=== PATIENT | male | born 1970 | race Caucasian/White ===

== ENCOUNTER 2021-03-27 08:01 | Outpatient (REF) | payer BC, SELFPAY ==
[2021-03-27 11:14] LABS: Hematocrit 42.9 % (42-52); Hemoglobin 14.2 g/dl (14.0-18.0); Mean Corpuscular HGB Conc 33.1 g/dl (31.0-36.0); Mean Corpuscular Hemoglobin 28.7 pg (27.0-33.0); Mean Corpuscular Volume 86.7 fL (80-98); Mean Platelet Volume 9.5 fL (9.4-12.4); Platelet Count 301 X10*3/uL (160-400); Red Blood Count 4.95 X10*6/uL (4.60-5.80); Red Cell Distribution Width 14.5 % (11.0-16.0); White Blood Count 8.5 X10*3/uL (4.8-10.8)
[2021-03-27 11:54] LABS: Alanine Aminotransferase 17 U/L (0-40); Albumin Level 4.1 g/dL (3.5-5.0); Alkaline Phosphatase 60 U/L (39-117); Anion Gap 14 (12-20); Aspartate Amino Transferase 18 U/L (5-37); Bilirubin Total 0.6 mg/dL (0.0-1.0); Blood Urea Nitrogen 17 mg/dL (9-16); Calcium 9.1 mg/dL (8.4-10.2); Carbon Dioxide 26 mmol/L (22-29); Chloride 105 mmol/L (96-108); Estimated Glomerular Filt Rate > 60; Glucose Fasting 100 mg/dL (60-99); Potassium 4.6 mmol/L (3.3-5.1); Sodium 140 mmol/L (135-145); Total Protein 6.8 g/dL (6.5-8.0)
[2021-03-27 12:00] LABS: Prostate Specific Antigen 1.53 ng/mL (<0.05-4.0)
== END 2021-03-27 08:02 | disposition home or self-care (01) ==
LOC: HO.MANLDS 08:01
PROVIDERS: PCP Internal Medicine; Visit Provider Internal Medicine
DX: I10 Essential (primary) hypertension (principal)
CPT/HCPCS: 36415; 80053; 84153; 85027

== ENCOUNTER 2022-06-03 07:29 | Outpatient (REF) | payer BC, SELFPAY ==
[2022-06-03 11:06] LABS: MANUAL DIFF FLAG NO
[2022-06-03 11:10] LABS: Basophils Percent Auto 0.3 % (0-2); Eosinophils Absolute Auto 0.2 X10*3/uL (0.0-0.4); Eosinophils Percent Auto 2.4 % (0-4); Hematocrit 45.2 % (42.0-52.0); Imm Gran Abs Auto 0.03 X10*3/uL (0.00-0.03); Imm Gran Pct Auto 0.4 % (0.0-0.4); Lymphocytes Absolute Auto 1.4 X10*3/uL (1.2-4.9); Lymphocytes Percent Auto 17.8 % (20-40); Mean Corpuscular HGB Conc 33.2 g/dl (31.0-36.0); Mean Corpuscular Hemoglobin 29.1 pg (27.0-33.0); Mean Corpuscular Volume 87.6 fL (80.0-98.0); Mean Platelet Volume 9.5 fL (9.4-12.4); Monocytes Absolute Auto 0.8 X10*3/uL (0.1-1.2); Monocytes Percent Auto 9.9 % (2-11); Neutrophils Absolute Auto 5.3 x10*3/uL (2.0-8.3); Neutrophils Percent Auto 69.2 % (45-73); Platelet Count 254 X10*3/uL (160-400); Red Blood Count 5.16 X10*6/uL (4.60-5.80); Red Cell Distribution Width 14.2 % (11.0-16.0); White Blood Count 7.6 X10*3/uL (4.8-10.8)
[2022-06-03 11:39] LABS: Alanine Aminotransferase 18 U/L (0-40); Albumin Level 4.1 g/dL (3.5-5.0); Alkaline Phosphatase 56 U/L (39-117); Anion Gap 13 (12-20); Aspartate Amino Transferase 19 U/L (5-37); Bilirubin Total 0.4 mg/dL (0.0-1.0); Blood Urea Nitrogen 23 mg/dL (9-16); Calcium 8.9 mg/dL (8.4-10.2); Carbon Dioxide 23 mmol/L (22-29); Chloride 105 mmol/L (96-108); Cholesterol 160 mg/dL; Estimated Glomerular Filt Rate > 60; Glucose Random 93 mg/dL (60-115); HDL Cholesterol 39 mg/dL; LDL Cholesterol Calculated 99 mg/dl; Sodium 137 mmol/L (135-145); Total Protein 6.6 g/dL (6.5-8.0); Triglycerides 112 mg/dL
[2022-06-03 12:02] LABS: Prostate Specific Antigen 1.02 ng/mL (<0.05-4.0); Vitamin D 25-OH Total 31.7 ng/mL (>30)
== END 2022-06-03 07:30 | disposition home or self-care (01) ==
LOC: HO.MANLDS 07:29
PROVIDERS: Visit Provider Internal Medicine
DX: Z00.00 Encounter for general adult medical examination without abnormal findings (principal); Z12.5 Encounter for screening for malignant neoplasm of prostate
CPT/HCPCS: 36415; 80053; 80061; 82306; 84153; 85025

== ENCOUNTER 2023-07-31 11:25 | Outpatient (REF) | payer BC, SELFPAY ==
[2023-07-31 13:02] LABS: MANUAL DIFF FLAG NO
[2023-07-31 13:37] LABS: Basophils Percent Auto 0.3 % (0-2); Eosinophils Absolute Auto 0.1 X10*3/uL (0.0-0.4); Eosinophils Percent Auto 1.9 % (0-4); Hematocrit 44.3 % (42.0-52.0); Hemoglobin 14.7 g/dl (14.0-18.0); Imm Gran Abs Auto 0.03 X10*3/uL (0.00-0.03); Imm Gran Pct Auto 0.4 % (0.0-0.4); Lymphocytes Absolute Auto 1.5 X10*3/uL (1.2-4.9); Lymphocytes Percent Auto 19.7 % (20-40); Mean Corpuscular HGB Conc 33.2 g/dl (31.0-36.0); Mean Corpuscular Hemoglobin 29.7 pg (27.0-33.0); Mean Corpuscular Volume 89.5 fL (80.0-98.0); Mean Platelet Volume 9.4 fL (9.4-12.4); Monocytes Absolute Auto 0.7 X10*3/uL (0.1-1.2); Monocytes Percent Auto 8.9 % (2-11); Neutrophils Absolute Auto 5.2 x10*3/uL (2.0-8.3); Neutrophils Percent Auto 68.8 % (45-73); Platelet Count 269 X10*3/uL (160-400); Red Blood Count 4.95 X10*6/uL (4.60-5.80); Red Cell Distribution Width 14.1 % (11.0-16.0); White Blood Count 7.5 X10*3/uL (4.8-10.8)
[2023-07-31 14:03] LABS: Alanine Aminotransferase 25 U/L (0-40); Albumin Level 4.1 g/dL (3.5-5.0); Alkaline Phosphatase 52 U/L (39-117); Anion Gap 12 (12-20); Aspartate Amino Transferase 19 U/L (5-37); Bilirubin Total 0.6 mg/dL (0.0-1.0); Blood Urea Nitrogen 13 mg/dL (9-16); Calcium 9.7 mg/dL (8.4-10.2); Carbon Dioxide 27 mmol/L (22-29); Chloride 104 mmol/L (96-108); Cholesterol 177 mg/dL (<200); Estimated Glomerular Filt Rate > 60; Glucose Random 96 mg/dL (60-115); HDL Cholesterol 52 mg/dL (>40); LDL Cholesterol Calculated 113 mg/dL (<100); Potassium 4.2 mmol/L (3.3-5.1); Sodium 139 mmol/L (135-145); Total Protein 7.3 g/dL (6.5-8.0); Triglycerides 63 mg/dL (<150)
== END 2023-07-31 11:26 | disposition home or self-care (01) ==
LOC: HO.MANLDS 11:25
PROVIDERS: Visit Provider Internal Medicine
DX: E78.00 Pure hypercholesterolemia, unspecified (principal); Z12.5 Encounter for screening for malignant neoplasm of prostate
CPT/HCPCS: 36415; 80053; 80061; 84153; 85025

== ENCOUNTER 2024-06-03 07:24 | Outpatient (REF) | payer BC, SELFPAY ==
[2024-06-03 13:01] LABS: MANUAL DIFF FLAG NO
[2024-06-03 13:14] LABS: Basophils Percent Auto 0.5 % (0-2); Eosinophils Absolute Auto 0.1 X10*3/uL (0.0-0.4); Hematocrit 45.4 % (42.0-52.0); Hemoglobin 15.3 g/dl (14.0-18.0); Imm Gran Abs Auto 0.04 X10*3/uL (0.00-0.03); Imm Gran Pct Auto 0.6 % (0.0-0.4); Lymphocytes Absolute Auto 1.1 X10*3/uL (1.2-4.9); Lymphocytes Percent Auto 16.9 % (20-40); Mean Corpuscular HGB Conc 33.7 g/dl (31.0-36.0); Mean Platelet Volume 9.5 fL (9.4-12.4); Monocytes Absolute Auto 0.6 X10*3/uL (0.1-1.2); Monocytes Percent Auto 9.5 % (2-11); Neutrophils Absolute Auto 4.7 x10*3/uL (2.0-8.3); Neutrophils Percent Auto 70.5 % (45-73); Platelet Count 271 X10*3/uL (160-400); Red Cell Distribution Width 14.6 % (11.0-16.0); White Blood Count 6.6 X10*3/uL (4.8-10.8)
[2024-06-03 14:11] LABS: Alanine Aminotransferase 29 U/L (0-40); Albumin Level 4.2 g/dL (3.5-5.0); Alkaline Phosphatase 59 U/L (39-117); Anion Gap 15 (12-20); Aspartate Amino Transferase 22 U/L (5-37); Bilirubin Total 0.3 mg/dL (0.0-1.0); Blood Urea Nitrogen 16 mg/dL (9-16); Calcium 9.5 mg/dL (8.4-10.2); Carbon Dioxide 26 mmol/L (22-29); Chloride 107 mmol/L (96-108); Cholesterol 176 mg/dL (<200); Estimated Glomerular Filt Rate > 60; Glucose Random 99 mg/dL (60-115); HDL Cholesterol 49 mg/dL (>40); LDL Cholesterol Calculated 111 mg/dL (<100); Potassium 4.9 mmol/L (3.3-5.1); Sodium 143 mmol/L (135-145); Total Protein 7.2 g/dL (6.5-8.0); Triglycerides 83 mg/dL (<150)
[2024-06-03 14:12] LABS: Prostate Specific Antigen 1.36 ng/mL (<0.05-4.0)
[2024-06-03 14:17] LABS: Vitamin D 25-OH Total 36.3 ng/mL (>30)
== END 2024-06-03 07:25 | disposition home or self-care (01) ==
LOC: HO.MANLDS 07:24
PROVIDERS: Visit Provider Internal Medicine
DX: Z12.5 Encounter for screening for malignant neoplasm of prostate (principal); I10 Essential (primary) hypertension
CPT/HCPCS: 36415; 80053; 80061; 82306; 84153; 85025

== ENCOUNTER 2025-06-13 10:26 | Outpatient (REF) | payer BC, SELFPAY ==
--- OUTSIDE RECORDS SUMMARY | 2025-06-13 11:35 | XMS_ITS | Data Portability ---
Author Organization [facility], Telehealth Patient Home Address [address] [place] [address] Assessment Encounter Date Assessment Date Assessment LastModified by Organization Details LastModified Time 08/05/2023 08/05/2023 [id number] [place] [id number] (RESIDENT CARE AIDE) MDM MODERATE MUST MEET 2 OUT OF 3 ELEMENTS: PROBLEMS, DATA OR RISK ELEMENT 1: PROBLEMS ADDRESSED 1 OR MORE CHRONIC ILLNESS WITH EXACERBATION OR 2 OR MORE STABLE CHRONIC ILLNESSES OR 1 UNDIAGNOSED NEW PROBLEM OR 1 ACUTE ILLNESS W/SYMPTOMS OR 1 ACUTE COMPLICATED INJURY ELEMENT 2: DATA MUST MEET 1 OF 3 CATEGORIES CATEGORY 1: REVIEW OF PRIOR EXTERNAL NOTES, REVIEW OF RESULTS, ORDERING OF EACH TEST, ASSESSMENT REQUIRING INDEPENDENT HISTORIAN OR CATEGORY 2: INDEPENDENT INTERPRETATION OF TESTS BY ANOTHER PHYSICIAN OR SPECIALIST OR CATEGORY 3: DISCUSSION OF MGT OR TEST INTERPRETATION W/EXTERNAL PHYSICIAN OR SPECIALIST ELEMENT 3: RISK RISK OF COMPLICATIONS AND/OR MORBIDITY OR MORTALITY OF PATIENT MANAGEMENT PROVIDER MUST THOROUGHLY DOCUMENT EACH ELEMENT THAT IS COVERED Not available 08/05/2023 09:51:55 02/26/2024 02/26/2024 [id number] [place] [id number] (RESIDENT CARE AIDE) : MDM LOW MUST MEET 2 OF 3 ELEMENTS: PROBLEMS, DATA OR RISK ELEMENT 1: PROBLEMS ADDRESSED (LOW): 2 OR MORE SELF-LIMITED OR MINOR PROBLEMS OR 1 STABLE CHRONIC ILLNESS OR 1 ACUTE UNCOMPLICATED ILLNESS OR INJURY ELEMENT 2: DATA TO BE REVISED AND ANALYZED (LOW) MUST MEET 1 OF 2 CATEGORIES: CATEGORY 1. REVIEW OF PRIOR EXTERNAL NOTES/RESULTS, ORDERING OF TEST(S) CATEGORY 2. ASSESSMENT REQUIRING INDEPENDENT HISTORIAN(S) INCLUDE WHO THE HISTORIAN IS AND RELATION TO PT AND WHY PT IS UNABLE TO GIVE COMPLETE HISTORY ELEMENT 3: RISK (LOW) RISK OF COMPLICATIONS AND/OR MORBIDITY OR MORTALITY OF PATIENT MANAGEMENT PROVIDER MUST THOROUGHLY DOCUMENT ALL OF THE ELEMENTS COVERED Not available 02/26/2024 09:16:03 Plan of Treatment Reminders Order Date Submit Date Provider Last Modified By Organization Details Last Modified Time Details Appointments ANNUAL EXAM 2024 10:00A M DR [place] Not available Not available Not available ANNUAL EXAM 2025 10:00A M DR [place] Not available Not available Not available Lab lipid panel, blood 2024 025 [facility], [address] [place] [address], [id number], 06/13/2025 10:22:36 CMP, serum or plasma 2024 025 [facility], [address] [place] [address], [id number], 06/13/2025 10:22:36 CBC w/ auto diff 2024 025 [facility], [address] [place] [address], [id number], 06/13/2025 10:22:36 PSA, serum or plasma 2024 025 [facility], [address] [place] [address], [id number], 06/13/2025 10:22:36 CMP, serum or plasma 2023 024 [facility], [address] [place] [address], [id number], 06/06/2024 11:17:55 CBC 2023 024 [facility], [address] [place] [address], [id number], 02/26/2024 09:19:13 PSA, serum or plasma 2023 024 [facility], [address] [place] [address], [id number], 06/06/2024 11:17:55 lipid panel, blood 2023 024 [facility], [address] [place] [address], [id number], 06/06/2024 11:17:55 vitamin D, 25-hydrox y, total, serum 2023 024 [facility], [address] [place] [address], [id number], 06/06/2024 11:17:55 lipid panel, blood 2022 023 [facility], [address] [place] [address], [id number], 08/03/2023 11:09:11 CMP, serum or plasma 2022 023 [facility], [address] [place] [address], [id number], 08/03/2023 11:09:11 PSA, serum or plasma 2022 023 [facility], [address] [place] [address], [id number], 08/03/2023 11:09:11 CBC w/ auto diff 2022 023 [facility], [address] [place] [address], [id number], 08/03/2023 11:09:12 Referral dermatolo gist referral 2022 023 arjun Del Rosario MD, [address], [place], [id number], 07/03/2023 08:51:49 Procedures None recorded. Surgeries None recorded. Imaging CT, coronary calcium score 2024 025 [email or web address], [facility] [place], [address], 06/13/2025 10:48:44 Medication Orders losartan 100 mg tablet 2023 024 [facility], [facility] [place], [id number], 06/07/2024 11:25:41 rosuvasta tin 20 mg tablet [address] [facility], [facility] [place], [address], 06/07/2024 16:50:59 omeprazol e 20 mg capsule,d elayed release 2022 023 [facility], [facility] [place], [address], 06/02/2023 12:23:44 rosuvasta tin 10 mg tablet [address] [facility] [place], [id number], 06/07/2024 16:49:44 Patient TargetsNo targets recorded. Patient Instructions Encounter Date Encounter Id Patient Instructions Last Modified By Organization Details Last Modified Time 06/02/2023 [id number] actinic keratosi s: care instructions Not available 06/02/2023 12:25:49 gastroesophageal reflux disease (GERD): care instructions Not available 06/02/2023 12:23:40 Reason for Referral Music Therapist Referral for A ctinic keratosis Referring Physician: Marquis Birmingham, Internal Medicine, Encounter Date: 06/02/2023 Results Created Date Observation Date Name Description Value Unit Range Abnormal Flag Note LastModifiedBy Organization Detail LastModifiedTime Result Notes None recorded. Problems Name Problem SNOMED Code Status Onset Date Resolution Date Notes Provider Name and Address Organization Details Recorded Time Overweight 025609002 Active 2020 Not Available [facility] 14:17:48 Herpetic elvis 47455189 Active 2020 Not Available [facility] 14:17:48 Sciatica 59990972 Active 2020 Not Available [facility] 14:17:48 Hypertensi ve disorder 56796344 Active 2020 Not Available [facility] 14:17:48 Primary erectile dysfunctio n 170720792 Active 2021 Marquis Birmingham DO [address] [place] [address], [address], [facility] 2 16:38:27 Actinic keratosis 965170401 Active 2021 Marquis Birmingham DO [address] [place] [address], [address], [facility] 2 16:44:47 Hyperchole sterolemia 39714996 Active 2021 Marquis Birmingham DO [address] [place] [address], [id number], [facility] 2 12:38:29 Epididymit is 38872235 Active 2021 Marquis Birmingham DO [address] [place] [address], [address], [facility] 2 12:40:00 Gastroesop hageal reflux disease 181534944 Active 2022 Marquis Birmingham DO [address] [place] [address], [address], [facility] 3 12:17:38 History of calculus of kidney 375603708 Active 2022 Marquis Birmingham DO [address] [place] [address], [address], [facility] 3 09:43:23 Calcific coronary arterioscl erosis 92217530 Active 2024 Marquis Birmingham DO [address] [place] [address], [address], [facility] 5 10:11:36 Problem Notes None recorded. Procedures Surgical History Date Name Laterality Status Provider Name and Address Organization Details Recorded Time Vasectomy completed Ericka Garcia MA [facility] 02/18/2021 14:22:43 Appendectomy completed Ericka Garcia MA [facility] 02/18/2021 14:22:50 adenoid excision completed Ericka Garcia MA [facility] 02/18/2021 14:22:59 Tonsillectomy completed Ericka [facility] 02/18/2021 14:23:05 Imaging Results None recorded. Procedure Notes None recorded. Medical Equipment None Reported. Allergies No known drug allergies Medications Name Sig Start Date Stop Date Status Note LastModified by Organization Details LastModified Time losartan 50 mg tablet TAKE 1 TABLET DAILY 07/30 completed Not Available Not Available Not Available sildenafil 50 mg tablet 1 po QD 12/13 completed Not Available Not Available Not Available simvastatin 10 mg tablet Take 1 tablet every day by oral route. 02/20 completed Not Available Not Available Not Available sildenafil 100 mg tablet TAKE 1 TABLET NEEDED; 18TABLETS ALLOWED BY INSURANCE EVERY 2 MONTHS active Not Available Not Available No t Available ketorolac 10 mg tablet TAKE 1 TABLET BY MOUTH THREE TIMES DAILY FOR 3 DAYS NEEDED PAIN. NOT TO EXCEED 40 MG DAILY AND 5 DAYS DURATION FOR ALL DOSE FORMS active Not Available Not Available No t Available tamsulosin 0.4 mg capsule TAKE 1 CAPSULE BY MOUTH EVERY NIGHT AT BEDTIME 06/07 completed Not Available Not Available Not Available naproxen sodium 220 mg tablet Take 1 tablet twice a day by oral route. 02/20 completed Not Available Not Available Not Available losartan 25 mg tablet Take 1 tablet every day by oral route. 02/20 completed Not Available Not Available Not Available omeprazole 20 mg capsule,del ayed release Take 1 capsule every day by oral route for 90 days. 2022 active Not Available Not Available Not Avai lable ondansetron 4 mg disintegrat ing tablet DISSOLVE 1 TABLET ON THE TONGUE EVERY 8 HOURS FOR 3 DAYS NEEDED FOR NAUSEA OR VOMITING 02/25 completed Not Available Not Available Not Available losartan 100 mg tablet TAKE 1 TABLET DAILY active Not Available Not Available No t Available rosuvastati n 5 mg tablet TAKE 1 TABLET BY MOUTH EVERY DAY 02/24 completed Not Available Not Available Not Available rosuvastati n 10 mg tablet TAKE 1 TABLET DAILY 06/07 completed Not Available Not Available Not Available rosuvastati n 20 mg tablet TAKE 1 TABLET DAILY active Not Available Not Available No t Available Zofran 02/25 completed Not Available Not Available Not Available Plenvu 140 gram-9 gram-5.2 gram powder packs COMPLETE ON DAY BEFORE PROCEDURE PER MINUTES IF SYMPTOMS OF OPIOID EMERGENCY PERSIST 05/30 completed Not Available Not Available Not Available Vitals Date Recorded Body height Body mass index (BMI) Body weight Heart rate Oxygen saturation Oxygen saturation in Arterial blood by Pulse oximetry Systolic And Diastolic Provider Name and Address Organization Details Last Updated DateTime 4 168.91 cm 35.8 kg/m2 328834. 28 g 73 /min 97 % 97 % 112/70 mm[Hg] Malini Moran [facility] 4 09:06:19 Date Recorded Body height Body mass index (BMI) Body weight Heart rate Oxygen saturation Oxygen saturation in Arterial blood by Pulse oximetry Systolic And Diastolic Provider Name and Address Organization Details Last Updated DateTime 3 168.91 cm 34.8 kg/m2 03574.7 3 g 75 /min 97 % 97 % 160/80 mm[Hg] Marquis Birmingham DO [address] [place] [address], [phone], [facility] 3 12:03:10 Date Recorded Body mass index (BMI) Body weight Provider Name and Address Organization Details Last Updated DateTime 06/07/2024 35 kg/m2 95534.32 g Marquis Birmingham DO [address] [place] [address], [address], [facility] 06/07/2024 11:10:21 Date Recorded Body height Heart rate Oxygen saturation Oxygen saturation in Arterial blood by Pulse oximetry Systolic And Diastolic Provider Name and Address Organization Details Last Updated DateTime 4 168.91 cm 73 /min 97 % 97 % 120/78 mm[Hg] Malini Moran [facility] 4 11:06:21 Date Recorded Body weight Oxygen saturation Oxygen saturation in Arterial blood by Pulse oximetry Heart rate Systolic And Diastolic Provider Name and Address Organization Details Last Updated DateTime 5 416662. 55 g 98 % 98 % 56 /min 126/70 mm[Hg] Shadia Hannah [facility] 5 09:57:47 Date Recorded Body height Body mass index (BMI) Body weight Heart rate Oxygen saturation Oxygen saturation in Arterial blood by Pulse oximetry Systolic And Diastolic Provider Name and Address Organization Details Last Updated DateTime 3 168.91 cm 34.2 kg/m2 04068.3 6 g 62 /min 97 % 97 % 142/78 mm[Hg] Dionne Najera [facility] 3 09:35:35 Social History Question Answer Notes LastModified by Organizat ion Details LastModified Time Tobacco Smoking Status [facility] 02/18/2021 14:23:12 What Was The Date Of Your Most Recent Tobacco Screening? 06/13/2025 [email or web address] Information not available 06/13/2025 Sex: Unknown Functional Status Question Answer Note LastModified by Organization D etails LastModified Time Do you or have you ever used any other forms of tobacco or nicotine? No [email or web address] Information not available 08/05/2023 Mental Status None recorded. Family History Relationship Description Onset Age of this Age Resolved Age Notes LastModified by Organization Details LastModified Time Maternal Grandmother Diabetes mellitus [email or web address] Not available 2020 13:59:47 Maternal Grandfather Diabetes mellitus [email or web address] Not available 2020 13:59:47 Maternal Grandfather Heart disease [email or web address] Not available 2020 14:00:04 Mother Diabetes mellitus [email or web address] Not available 2020 13:59:47 Mother Heart disease [email or web address] Not available 2020 14:00:04 Mother Depressive disorder [email or web address] Not available 2020 14:00:23 Father Hypertensive disorder [email or web address] Not available 2020 14:00:13 Father Malignant neoplastic disease [email or web address] Not available 09:51:18 Medical History No medical history recorded. Immunizations Vaccine Type Date Status Note Provider Nam e and Address Organization Details Recorded Time Influenza, split virus, quadrivalent, preservative 11/02/202 1 completed Dionne Gencarelle null, [facility] 08/05/2023 09:27:53 COVID-19, mRNA, LNP-S, PF, 100 mcg/0.5mL dose or 50 mcg/0.25mL dose 1 completed Dionne Gencarelle edgar [facility] 08/05/2023 09:27:53 Tdap 0 completed Ericka Garcia null, [facility] 02/18/2021 14:21:55 Influenza, split virus, quadrivalent, preservative 0 completed Dionne Gencarelle edgar, [facility] 08/05/2023 09:27:53 COVID-19, mRNA, LNP-S, PF, 100 mcg/0.5mL dose or 50 mcg/0.25mL dose 1 completed Dionne Gencarelle edgar [facility] 08/05/2023 09:27:53 COVID-19, mRNA, LNP-S, PF, 100 mcg/0.5mL dose or 50 mcg/0.25mL dose 1 completed Dionne Gencarelle [facility] 08/05/2023 09:27:53 Past Encounters Encounter ID Performer Location Encounter Start Date Encounter Closed Date Diagnosis/Indication Diagnosis SNOMED-CT Code Diagnosis ICD10 Code Diagnosis Note [id number] Marquis Birmingham [facility] [address] [place] [address] 02/20/2021 11:46:19 02/20/2021 14:31:44 Adult health examination 897542662 Z00.00 Hypertensive disorder 38 554097 I10 will rech after increase losasrt to 50 [id number] Marquis Birmingham [facility] [address] [place] [address] 04/01/2021 15:27:15 04/01/2021 16:34:25 Active or passive immunization 908702728 Z23 vtd Adult [facility] th examination 882576611 Z00.[address] finding of 44% calcium build up in cor art Hypertensive disorder 38 308739 I10 will rech after increase losasrt to 50 Hypercholesterolemia 136 55792 E78.00 Screening colonoscopy 44 4268835 Z12.11 [id number] Marquis Birmingham [facility] [address] [facility] [place] [address] 05/30/2022 15:42:21 05/30/2022 16:44:41 Active or passive immunization 114564375 Z23 patient advised he is due for tdap Adult heal th examination 468000410 Z00.[address] finding of 44% calcium build up in cor art Hypertensive disorder 38 189781 I10 will rech after increase losasrt to 50 Primary er ectile dysfunction 078631619 N52.9 [id number] Marquis Birmingham [facility] [address] [facility] [address] 07/07/2022 12:13:20 07/07/2022 14:05:11 Hypertensive disorder 79965268 I10 will rech after increase losasrt to 50 Hypercholesterolemia 136 38525 E78.00 reviewed numbers Epididymitis 73679376 N4 5.1 usually dissipates with advil is getting better but will call if worse Primary er ectile dysfunction 885352491 N52.9 [id number] Marquis Birmingham [facility] [address] [facility] [address] 06/02/2023 11:51:36 06/02/2023 13:37:34 Active or passive immunization 797502323 Z23 patient advised he is due for tdap Adult heal th examination 024874142 Z00.[address] finding of 44% calcium build up in cor art Hypercholesterolemia 136 36314 E78.00 reviewed numbers Gastroesop hageal reflux disease 431993796 K21.9 Hypertensive disorder 38 912773 I10 will cut back on Na+ use and we will rechk in 45 days Actinic keratosis 007 L57.0 [id number] Marquis Birmingham [facility] [address] [facility] [address] 08/05/2023 09:27:06 08/05/2023 10:11:59 Hypercholesterolemia 17807467 E78.00 reviewed numbers doing good LDL 113 HDL 52 History of calculus of kidney 186866330 Z87.442 has passed at least 2 of 4 stoneswill be seeing urologist next weekUS is next week as wellhe will cont the flomax Hypertensive disorder 38 040679 I10 doing much better even after the kidney stone [id number] Marquis Birmingham [facility] [address] [facility] [address] 02/26/2024 08:57:48 02/26/2024 09:43:15 Hypertensive disorder 68667253 I10 doing much better History of calculus of kidney 387667758 Z87.442 has passed at least 2 of 4 stoneswill be seeing urologist next weekUS is next week as wellhe will cont the flomax Hypercholesterolemia 136 34273 E78.00 reviewed numbers doing good LDL 113 HDL 52will rechk in the fall [id number] Marquis Birmingham [facility] [address] [facility] [address] 06/07/2024 10:55:42 06/07/2024 15:32:25 Depression screening 950414713 Z13.31 neg Hypercholesterolemia 136 75015 E78.00 reviewed numbers doing good LDL 111 HDL 53will increase dose to 20mg Hypertensive disorder 38 153718 I10 doing much better [id number] Marquis Birmingham [facility] [address] [facility] [address] 06/13/2025 09:51:03 06/13/2025 10:48:44 Active or passive immunization 495356195 Z23 patient advised he is due for tdap Depression screening 171 705361 Z13.31 neg Hypercholesterolemia 136 74676 E78.00 reviewed numbers doing good LDL 111 HDL 53will increase dose to 20mg Hypertensive disorder 38 492270 I10 doing much better Calcific c oronary arteriosclerosis 46268940 I25.10 Well adult 828704518 Z00 .[address] finding of 44% calcium build up in cor art Health Concerns Section Related Observation LastModified by Organization Detai ls LastModified Time None Recorded Concern Status LastModified by Organization Details LastModified Time None Recorded Advance Directives Directive None Recorded Payers Insurance Date Sequence Insurance Name Policy Number Policy Kelly Covered Member ID Kelly Member ID Guarantor Name 06/13/2025 1 [facility] [id number] Jevon White [id number] Jevon White Notes Date Note Type Note Provider Name and Address Organization Details Recorded Time 06/02/20 23 text/htm l Annual WellnessReported bypatient.Diet and Nutrition:healthy diet Fracture Risk:no history of fractures; no recent explained fracture; no sudden unexplained fractures; no previous musculoskeletal injuries Physical Activity:exercises on a regular basis; recent increase in physical activity; good physical condition Additional Lifestyle Factors:no tobacco use; no alcohol intake; stopped drinking alcohol Depression Risk:never feels sad, empty, or tearful; no loss of interest in activities; no significant changes in weight; no sleep disturbances or insomnia; no agitation; no loss of energy; no feelings of worthlessness or guilt; no thoughts of suicide; no history of depression; no history of mood disorders Hearing:no loss of hearing Vision:no vision problems Marquis Birmingham DO [address] [place], [address], [facility] 06/02/2023 12:30:00 08/05/20 23 text/htm l here for rechkhas recently passed 4 kidney stoneson eval was noted to have hydronephrosiswas eval with CT scan had 4 stoneshe has passed at least 2 stonesfeels fine right nowhas a US ordered next week Marquis Birmingham DO [address] [place], [address], [facility] 08/05/2023 09:56:06 02/26/20 24 text/htm l Care Management - HypertensionReported bypatient.Self Care:not under emotional stress Severity:symptoms are improving; does not interfere with daily activities Associated Symptoms:no dizziness; no lightheadedness; no chest pain; no shortness of breath; no palpitations; no edema; no calf muscle cramps; no blurred vision; no confusion; no headaches; no fatigue here for rechkdoing ok overallno cp no sobfeels well Marquis Birmingham DO [address] [place], [address], [facility] 02/26/2024 09:19:35 06/07/20 24 text/htm l Care Management - HypertensionReported bypatient.Self Care:not under emotional stress Severity:symptoms are improving; does not interfere with daily activities Associated Symptoms:no dizziness; no lightheadedness; no chest pain; no shortness of breath; no palpitations; no edema; no calf muscle cramps; no blurred vision; no confusion; no headaches; no fatigue here for rechkreviewed lab in detailfejennifer eisenberg cp no sob Marquis Birmingham DO [address] [place], [address], [facility] 06/07/2024 11:28:05 06/13/20 25 text/htm l Annual WellnessReported bypatient.Diet and Nutrition:healthy diet Fracture Risk:no history of fractures; no recent explained fracture; no sudden unexplained fractures; no previous musculoskeletal injuries Physical Activity:exercises on a regular basis; recent increase in physical activity; good physical condition Additional Lifestyle Factors:no tobacco use; no alcohol intake; stopped drinking alcohol Depression Risk:never feels sad, empty, or tearful; no loss of interest in activities; no significant changes in weight; no sleep disturbances or insomnia; no agitation; no loss of energy; no feelings of worthlessness or guilt; no thoughts of suicide; no history of depression; no history of mood disorders Hearing:no loss of hearing Vision:no vision problemsCare Management - HyperlipidemiaReported bypatient.Control:usually well controlled; improving; at goal Complications:no coronary artery disease; no heart attack; no cardiovascular disease; no pancreatitis; no strokeCare Management - HypertensionReported bypatient.Self Care:not under emotional stress Severity:symptoms are improving; does not interfere with daily activities Associated Symptoms:no dizziness; no lightheadedness; no chest pain; no shortness of breath; no palpitations; no edema; no calf muscle cramps; no blurred vision; no confusion; no headaches; no fatigue here for rechkand is doing ok overallrelates has been having pain in her hand states that it only hurts in am and then is fine over timeno prob with med sno cp nosob Marquis Birmingham DO [address] [facility], [place], [address], [facility] 06/13/2025 11:26:35
[2025-06-13 13:08] LABS: MANUAL DIFF FLAG NO
[2025-06-13 13:55] LABS: Hematocrit 47.0 % (42.0-52.0); Hemoglobin 15.9 g/dl (14.0-18.0); Imm Gran Abs Auto 0.04 X10*3/uL (0.00-0.03); Imm Gran Pct Auto 0.5 % (0.0-0.4); Lymphocytes Absolute Auto 1.6 X10*3/uL (1.2-4.9); Mean Corpuscular HGB Conc 33.8 g/dl (31.0-36.0); Mean Corpuscular Hemoglobin 29.6 pg (27.0-33.0); Mean Corpuscular Volume 87.4 fL (80.0-98.0); NRBC Abs Auto 0.000 X10*3/uL (0.0-0.012); NRBC Pct Auto 0.0 /100WBC (0.0-0.2); Platelet Count 270 X10*3/uL (160-400); Red Blood Count 5.38 X10*6/uL (4.60-5.80); White Blood Count 8.2 X10*3/uL (4.8-10.8)
[2025-06-13 14:20] LABS: Alanine Aminotransferase 28 U/L (0-40); Albumin Level 4.5 g/dL (3.5-5.0); Alkaline Phosphatase 60 U/L (39-117); Anion Gap 14 (12-20); Aspartate Amino Transferase 29 U/L (5-37); Blood Urea Nitrogen 19 mg/dL (9-16); Calcium 9.7 mg/dL (8.4-10.2); Carbon Dioxide 28 mmol/L (22-29); Chloride 106 mmol/L (96-108); Cholesterol 179 mg/dL (<200); Estimated Glomerular Filt Rate > 60; HDL Cholesterol 60 mg/dL (>40); Potassium 4.9 mmol/L (3.3-5.1); Sodium 143 mmol/L (135-145); Total Protein 7.3 g/dL (6.5-8.0); Triglycerides 75 mg/dL (<150)
[2025-06-13 14:46] LABS: Prostate Specific Antigen 1.95 ng/mL (<0.05-4.0)
== END 2025-06-13 10:27 | disposition home or self-care (01) ==
LOC: HO.MANLDS 10:26
PROVIDERS: Visit Provider Internal Medicine
DX: E78.00 Pure hypercholesterolemia, unspecified (principal)
CPT/HCPCS: 36415; 80053; 80061; 84153; 85025